=== PATIENT | male | born 1965 | race Caucasian/White ===

== ENCOUNTER 2017-02-03 05:34 | Emergency (ER) | payer OTHER ==
[2017-02-03] MEDS ORDERED: MORPHINE SULFATE 10 MG/ML INJ IV PRN (05:57)
[2017-02-03] MEDS ORDERED: KETOROLAC TROMETHAMINE INJ/PF 30 MG/1 ML SDV IV ONE (05:57)
[2017-02-03] MEDS ORDERED: ONDANSETRON HCL INJ/PF 4 MG/2 ML SDV IV ONE ×2 (05:57→07:47)
[2017-02-03 06:26] LABS: ABSOLUTE BASOPHILS # (AUTO) 0.1 10^3/uL (0.0-0.2); ABSOLUTE EOSINOPHILS # (AUTO) 0.3 10^3/uL (0.0-0.6); ABSOLUTE LYMPHOCYTES (AUTO) 2.5 10^3/uL (0.5-4.7); ABSOLUTE MONOCYTES (AUTO) 0.8 10^3/uL (0.1-1.4); ABSOLUTE NEUT (AUTO) 4.2 10^3/uL (1.7-8.2); BASOPHILS % (AUTO) 0.7 % (0-2); EOSINOPHILS % (AUTO) 3.3 % (0-6); HEMATOCRIT 45.5 % (37.9-51.0); HEMOGLOBIN 15.1 g/dL (13.5-17.0); HGB HCT DIFFERENCE -0.2; LYMPHOCYTES % (AUTO) 31.5 % (13-45); MEAN CORPUSCULAR HEMOGLOBIN 29.6 pg (27.0-33.4); MEAN CORPUSCULAR HGB CONC 33.2 g/dL (32.0-36.0); MEAN CORPUSCULAR VOLUME 89 fl (80-97); MONOCYTES % (AUTO) 10.2 % (3-13); RED BLOOD COUNT 5.11 10^6/uL (4.35-5.55); RED CELL DISTRIBUTION WIDTH 13.6 % (11.5-14.0); SEGMENTED NEUTROPHILS % (AUTO) 54.3 % (42-78); WHITE BLOOD COUNT 7.8 10^3/uL (4.0-10.5)
[2017-02-03 06:39] LABS: ALANINE AMINOTRANSFERASE 40 U/L (21-72); ALBUMIN 4.4 g/dL (3.5-5.0); ALKALINE PHOSPHATASE 89 U/L (38-126); ANION GAP 10 (5-19); ASPARTATE AMINO TRANSFERASE 30 U/L (17-59); BILIRUBIN,DIRECT 0.4 mg/dL (0.0-0.4); BILIRUBIN,TOTAL 0.8 mg/dL (0.2-1.3); BLOOD UREA NITROGEN 17 mg/dL (7-20); CALCIUM 9.9 mg/dL (8.4-10.2); CARBON DIOXIDE 23 mmol/L (22-30); CHLORIDE 109 mmol/L (98-107); CREATININE RESULT 1.02 mg/dL (0.52-1.25); GLUCOSE 140 mg/dL (75-110); LIPASE 122.9 U/L (23-300); POTASSIUM 4.6 mmol/L (3.6-5.0); TOTAL PROTEIN 7.7 g/dL (6.3-8.2)
--- NOTE | 2017-02-03 06:47 | ER Document Report ---
ED GI/ - General Mode of Arrival: Ambulatory Information source: Patient TRAVEL OUTSIDE OF THE [place] IN LAST 30 DAYS: No - HPI Patient complains to provider of: Flank pain - left, Testicular pain - left testicle tingling Onset: This morning - 0400 Location: Left flank, Left testicle Associated symptoms: Other - see notes above <ARVIN BARROW - Last Filed: 02/03/17 06:56> <KERRI GRIDER - Last Filed: 02/03/17 11:56> - General Chief Complaint: Possible Kidney Stone Stated Complaint: LEFT FLANK PAIN Time Seen by Provider: 02/03/17 06:42 Notes: 51 year old male with history of kidney stones (last 1-2 years ago) presents to the ED complaining of left flank pain that started at 0400 this morning. Patient also reports tingling that radiated down to his left testicle, but has since resolved. Patient states that he is feeling much better now (3/10 pain). Patient is not on any regular medication. (ARVIN BARROW) - Related Data Allergies/Adverse Reactions: sulfamethoxazole [From Septra] Allergy (Verified 10/07/13 13:57) trimethoprim [From Septra] Allergy (Verified 10/07/13 13:57) Past Medical History - General Information source: Patient - Social History Smoking Status: Never Smoker Frequency of alcohol use: Rare Family History: Reviewed & Not Pertinent Patient has suicidal ideation: No Patient has homicidal ideation: No - Medical History Medical History: Negative Renal/ Medical History: Denies: Hx Peritoneal Dialysis Surgical Hx: Negative - Immunizations Hx Diphtheria, Pertussis, Tetanus Vaccination: Yes <ARVIN BARROW - Last Filed: 02/03/17 06:56> Review of Systems - Review of Systems Constitutional: No symptoms reported EENT: No symptoms reported Cardiovascular: No symptoms reported Respiratory: No symptoms reported Gastrointestinal: No symptoms reported Genitourinary: See HPI, Flank pain - left Male Genitourinary: See HPI, Other - left testicle tingling Musculoskeletal: No symptoms reported Skin: No symptoms reported Hematologic/Lymphatic: No symptoms reported Neurological/Psychological: No symptoms reported -: Yes All other systems reviewed and negative <ARVIN BARROW - Last Filed: 02/03/17 06:56> Physical Exam - General General appearance: Alert In distress: None - HEENT Head: Normocephalic, Atraumatic Eyes: Normal Extraocular movements intact: Yes Pupils: PERRL - Respiratory Respiratory status: No respiratory distress - Cardiovascular Rhythm: Regular - Abdominal Inspection: Normal Distension: No distension Tenderness: Tender - Patient is tender when palpated to the left rib toward the kidney. - Back Back: CVA tenderness - left. No: Normal - Extremities General upper extremity: Normal inspection, Normal ROM General lower extremity: Normal inspection, Normal ROM - Neurological Neuro grossly intact: Yes - Psychological Associated symptoms: Normal affect, Normal mood - Skin Skin Temperature: Warm Skin Moisture: Dry Skin Color: Normal <ARVIN BARROW - Last Filed: 02/03/17 06:56> Course - Laboratory Result Diagrams: 02/03/17 06:11 02/03/17 06:11 <ARVIN BARROW - Last Filed: 02/03/17 06:56> - Laboratory Result Diagrams: 02/03/17 06:11 02/03/17 06:11 - Diagnostic Test Radiology reviewed: Image reviewed, Reports reviewed - There is a 3 mm calcification in the bladder suggesting a recently passed kidney stone. <KERRI GRIDER - Last Filed: 02/03/17 11:56> - Re-evaluation Re-evalutation: 02/03/17 07:48 The pt is having more pain and nausea. (KERRI GRIDER) - Vital Signs Vital signs: Temp Pulse Resp BP Pulse Ox 97.6 F 80 22 H 127/96 H 97 02/03/17 05:40 02/03/17 05:40 02/03/17 05:40 02/03/17 09:15 02/03/17 05:40 02/03/17 07:47 (KERRI GRIDER) - Laboratory Laboratory results interpreted by me: 02/03/17 02/03/17 06:11 06:36 Chloride 109 H Glucose 140 H Urine Blood SMALL H Discharge <ARVIN BARROW - Last Filed: 02/03/17 06:56> <KERRI GRIDER - Last Filed: 02/03/17 11:56> - Discharge Clinical Impression: Kidney stone on left side Condition: Stable Disposition: HOME, SELF-CARE Additional Instructions: Kidney Stone You have passed a kidney stone. These stones are usually due to increased calcium or uric acid concentrations in your urine. Stones within the kidney itself are not painful. The pain occurs as the stone leaves the kidney to pass down the long tube, called the ureter, leading to the bladder. If the stone is small, it will usually pass by itself. Most patients can pass the stone at home. You will usually receive medications for pain, nausea or vomiting, and sometimes a medication to assist in passing the kidney stone. However, if the pain is very severe or if vomiting prevents you from taking oral pain medications, you may need to return for further treatment. Drink three or four quarts of fluids per day. You will be given pain medication (if needed) and urine strainers. Strain all your urine to see if the stone passes. If your doctor has asked you to bring the stone in for analysis, return with the stone once it has passed. Return if pain or vomiting become severe, if you develop a high fever, if you are unable to pass your urine, or if other unusual symptoms occur. Drink plenty of fluids today. Take Tylenol and Aleve for pain if needed. Return to the emergency room if any new or worsening symptoms. Scribe Attestation: 02/03/17 11:56 I personally performed the services described in the documentation, reviewed and edited the documentation which was dictated to the scribe in my presence, and it accurately records my words and actions. (KERRI GRIDER) Scribe Documentation - Scribe Written by Navi:: Navi Chu, 02/03/2017 0702 acting as scribe for :: Benitez <ARVIN BARROW - Last Filed: 02/03/17 06:56>
[2017-02-03 06:50] LABS: APPEARANCE,URINE CLEAR; BILIRUBIN,URINE NEGATIVE (NEGATIVE); GLUCOSE, URINE NEGATIVE (NEGATIVE); KETONES,URINE NEGATIVE (NEGATIVE); LEUKOCYTE ESTERASE,URINE NEGATIVE (NEGATIVE); NITRITE,URINE NEGATIVE (NEGATIVE); PROTEIN,URINE NEGATIVE (NEGATIVE); URINE SPECIFIC GRAVITY 1.029; UROBILINOGEN,URINE NEGATIVE mg/dL (<2.0)
[2017-02-03] MEDS ORDERED: MORPHINE SULFATE 10 MG/ML INJ IV ONE (07:47)
[2017-02-03] MEDS ORDERED: DIPHENHYDRAMINE HCL 50 MG/ML VIAL IV ONE (09:20)
[2017-02-03] MEDS ORDERED: METOCLOPRAMIDE HCL INJ/PF 10 MG/2 ML SDV IV ONE (09:20)
[2017-02-03 12:46] VITALS: BP 125/73
== END 2017-02-03 12:13 | disposition home or self-care (01) ==
LOC: ER 05:34
DX: N20.0 Calculus of kidney (principal); N50.812 Left testicular pain; R10.9 Unspecified abdominal pain; Z88.3 Allergy status to other anti-infective agents
CPT/HCPCS: 96376; 99284; 96374; 96375; 36415; 83690; 85025; 80053; 81001; 76380; J1200; J1885; J2765; J2270; J2405

== ENCOUNTER 2017-08-09 02:29 | Emergency (ER) | payer OTHER ==
[2017-08-09] MEDS ORDERED: KETOROLAC TROMETHAMINE INJ/PF 30 MG/1 ML SDV IV ONE (02:59)
[2017-08-09] MEDS ORDERED: NORMAL SALINE 1000 ML 1,000 ML IV ONE (03:00)
--- NOTE | 2017-08-09 03:02 | ER Document Report ---
ED General - General Chief Complaint: Flank Pain Stated Complaint: FLANK PAIN Time Seen by Provider: 08/09/17 02:56 Notes: Patient is a pleasant 51-year-old male who presents with complaint of left flank pain. Patient has history of kidney stone back in January. He was able to pass this on his own. He says it feels exactly the same. No fevers. Some nausea. No vomiting. No diarrhea. No hematuria. No dysuria. Only medical allergies to Septra. No other complaints at this time. TRAVEL OUTSIDE OF THE [place] IN LAST 30 DAYS: No - Related Data Allergies/Adverse Reactions: sulfamethoxazole [From Septra] Allergy (Verified 10/07/13 13:57) trimethoprim [From Septra] Allergy (Verified 10/07/13 13:57) Past Medical History - Social History Smoking Status: Never Smoker Frequency of alcohol use: None Drug Abuse: None Family History: Reviewed & Not Pertinent Renal/ Medical History: Denies: Hx Peritoneal Dialysis - Immunizations Hx Diphtheria, Pertussis, Tetanus Vaccination: Yes Review of Systems - Review of Systems Notes: My Normal Review Basic REVIEW OF SYSTEMS: CONSTITUTIONAL : Denies fever, chills, or sweats. Denies recent illness. CARDIOVASCULAR: Denies chest pain. RESPIRATORY: Denies cough, cold, or chest congestion. Denies shortness of breath, difficulty breathing, or wheezing. GASTROINTESTINAL: Left flank pain. No vomiting. GENITOURINARY: Denies difficulty urinating, painful urination, burning, frequency, or blood in urine. MUSCULOSKELETAL: Denies neck or back pain or joint pain or swelling. SKIN: Denies rash or skin lesions. ALL OTHER SYSTEMS REVIEWED AND NEGATIVE. Physical Exam - Vital signs Vitals: Temp Pulse Resp BP Pulse Ox 97.5 F 82 16 162/95 H 98 08/09/17 02:37 08/09/17 02:37 08/09/17 02:37 08/09/17 02:37 08/09/17 02:37 - Notes Notes: General Appearance: Well nourished, alert, cooperative, no acute distress, moderate obvious discomfort. Vitals: reviewed, See vital signs table. Head: no swelling or tenderness to the head Eyes: PERRL, EOMI, Conjuctiva clear Mouth: No decreasd moisture Lungs: No wheezing, No rales, No rhonci, No accessory muscle use, good air exchange bilaterally. Heart: Normal rate, Regular rythm, No murmur, no rub Abdomen: Normal BS, soft, No rigidity, No useful abdominal tenderness to palpation., No guarding, no rebound, Extremities: strength 5/5 in all extremities, good pulses in all extremities, no swelling or tenderness in the extremities, no edema. Skin: warm, dry, appropriate color, no rash Neuro: speech clear, oriented x 3, normal affect, responds appropriately to questions. Course - Re-evaluation Re-evalutation: 08/09/17 04:59 Patient's pain did not respond to Toradol. Is improved some after Dilaudid. He looks and feels improved. He says he still has some pain there but nowhere near as intense as it was before. His clinical presentation was very much like a kidney stone; however, he has no blood in his urine his ultrasound shows no hydronephrosis. We will go forward with CT scan to further delineate exactly what is going on. 08/09/17 06:04 Patient's pain is gone but is now nauseous. He did start vomiting was talking to him. He had Zofran. I will order him some Reglan. CT scan does show a 3 mm stone in the left mid ureter. 08/09/17 06:50 Since nausea was much improved and he feels well. Patient will be discharged home. I encouraged him to take the Toradol first for pain. If he still has pain and he can progress to Percocet. I have also prescribe nausea medicine. Encouraged him return to ER immediately if he has trouble vomiting, worsening pain, fevers, or feels unwell. Patient agrees with plan will be discharged home. Dictation of this chart was performed using voice recognition software; therefore, there may be some unintended grammatical errors. - Vital Signs Vital signs: Temp Pulse Resp BP Pulse Ox 97.5 F 82 16 162/95 H 98 08/09/17 02:37 08/09/17 02:37 08/09/17 02:37 08/09/17 02:37 08/09/17 02:37 - Laboratory Result Diagrams: 08/09/17 03:15 08/09/17 04:10 Laboratory results interpreted by me: 08/09/17 04:10 Potassium 5.1 H Glucose 114 H Discharge - Discharge Clinical Impression: Kidney stone on left side Additional Instructions: KIDNEY STONE: You are passing or have passed a kidney stone. These stones are usually due to increased calcium or uric acid concentrations in your urine. Stones within the kidney itself are not painful. The pain occurs as the stone leaves the kidney to pass down the long tube, called the ureter, leading to the bladder. If the stone is small, it will usually pass by itself. Most patients can pass the stone at home. You will usually receive medications for pain, nausea or vomiting, and sometimes a medication to assist in passing the kidney stone. However, if the pain is very severe or if vomiting prevents you from taking oral pain medications, you may need to return for further treatment. Drink three or four quarts of fluids per day. You will be given pain medication (if needed) and urine strainers. Strain all your urine to see if the stone passes. If your doctor has asked you to bring the stone in for analysis, return with the stone once it has passed. Return if pain or vomiting become severe, if you develop a high fever, if you are unable to pass your urine, or if other unusual symptoms occur. TORADOL INJECTION: You have been given an injection of ketorolac tromethamine (Toradol). This is an excellent, safe drug for pain control. It also has potent antiinflammatory action. You should have significant pain relief within about one hour. Toradol is not addicting and is non-sedating. It does not interfere with driving or work. Call or return if you develop itching, hives, shortness of breath, or rash. PAIN MEDICATION INJECTION: You have received an injection of a pain medication. You should experience significant pain relief within 45 minutes. This drug is a narcotic - - it will impair your judgement, slow your reaction time and make you sleepy ( as well as relieve your pain). Narcotics also can cause nausea. You should not drive, work with machinery, or perform any task requiring mental alertness until all effects of the medication are gone -- six to eight hours. Do not take any alcohol, or sedatives, and do not take any other medication without checking with your physician. ANTINAUSEA MEDICATION: You have been given a medication to suppress nausea and vomiting. This type of medication can be given as a shot, pill, or suppository. It will usually last for many hours. Pills and shots usually last six to eight hours, suppositories last about 12 hours. For the typical illness, only one or two doses of the medication may be necessary. Mild lightheadedness may occur. This type of medicine can cause drowsiness. Do not drive or operate dangerous machinery while under its influence. Do not mix with alcohol. See your doctor at once if you have muscle spasms or tightness, or uncontrollable motions (particularly of the neck, mouth, or jaw). Persistent vomiting or severe lightheadedness should also be evaluated by the physician. ORAL NARCOTIC MEDICATION: You have been given a prescription for pain control. This medication is a narcotic. It's best taken with food, as nausea can result if taken on an empty stomach. Don't operate machinery or drive within six hours of taking this medication. Do not combine this medicine with alcohol, or with any medication which can cause sedation (such as cold tablets or sleeping pills) unless you get permission from the physician. Narcotics tend to cause constipation. If possible, drink plenty of fluids and eat a diet high in fiber and fruits. Please be aware that prescription narcotics also have the potential for abuse. People become addicted to these medications because of the general sense of wellbeing that they induce. This feeling along with a significant reduction in tension, anxiety, and aggression provides a stimulating seductive quality to these drugs. Once your pain is under control, we encourage you to discard your unused narcotics. FLOMAX (tamsulosin): Flomax is a medicine that shrinks the prostate gland. It helps relieve symptoms of benign prostatic hypertrophy, such as frequent urination, weak stream, and inadequate emptying. It has been shown to dilate the ureter (tube leading from the kidney to the bladder) and help in passing kidney stones Flomax usually causes no side effects. You may notice slight tiredness and dizziness for a few days. Some patients develop nasal congestion. Rarely, impotence can occur. If the symptoms are bothersome and don't improve with continued use, call your doctor. Contact your doctor or return if you have fainting spells, severe weakness or dizziness, shortness of breath, or rash. FOLLOW-UP CARE: If you have been referred to a physician for follow-up care, call the physician s office for an appointment as you were instructed or within the next two days. If you experience worsening or a significant change in your symptoms, notify the physician immediately or return to the Emergency Department at any time for re-evaluation. PLease follow up with a urologist if you have not passed your stone after 3 days. If unable to follow up with the urologist and still having pain after 4 days, please return to the ER for reevaluation Return tot ER immediately if you have intractable vomiting, fevers, or intractable pain. Prescriptions: Ketorolac Tromethamine [Toradol 10 mg Tablet] 10 mg PO Q8HP PRN #15 tablet PRN Reason: Ondansetron [Zofran Odt 4 mg Tablet] 1 tab PO Q4H PRN #15 tab.rapdis PRN Reason: For Nausea/Vomiting Oxycodone HCl/Acetaminophen [Percocet 5-325 mg Tablet] 1 tab PO Q4H PRN #15 tablet PRN Reason: Tamsulosin HCl [Flomax 0.4 mg Cap.sr] 0.4 mg PO DAILY #7 cap.sr.24h Forms: Return to Work Referrals: JONAS GRECO MD [NO LOCAL MD] - Follow up in 3-5 days
[2017-08-09 03:28] LABS: ABSOLUTE EOSINOPHILS # (AUTO) 0.2 10^3/uL (0.0-0.6); ABSOLUTE LYMPHOCYTES (AUTO) 2.1 10^3/uL (0.5-4.7); ABSOLUTE MONOCYTES (AUTO) 0.6 10^3/uL (0.1-1.4); BASOPHILS % (AUTO) 0.7 % (0-2); EOSINOPHILS % (AUTO) 2.2 % (0-6); HEMATOCRIT 42.4 % (37.9-51.0); HEMOGLOBIN 14.6 g/dL (13.5-17.0); HGB HCT DIFFERENCE 1.4; LYMPHOCYTES % (AUTO) 30.3 % (13-45); MEAN CORPUSCULAR HEMOGLOBIN 30.1 pg (27.0-33.4); MEAN CORPUSCULAR HGB CONC 34.5 g/dL (32.0-36.0); MEAN CORPUSCULAR VOLUME 87 fl (80-97); MONOCYTES % (AUTO) 9.3 % (3-13); RED BLOOD COUNT 4.85 10^6/uL (4.35-5.55); RED CELL DISTRIBUTION WIDTH 13.2 % (11.5-14.0); SEGMENTED NEUTROPHILS % (AUTO) 57.5 % (42-78); WHITE BLOOD COUNT 6.9 10^3/uL (4.0-10.5)
[2017-08-09] MEDS ORDERED: ONDANSETRON HCL INJ/PF 4 MG/2 ML SDV IV ONE (04:44)
[2017-08-09] MEDS ORDERED: HYDROMORPHONE HCL INJ/PF 2 MG/ML AMPULE IV ONE (04:44)
[2017-08-09 04:49] LABS: APPEARANCE,URINE CLEAR; BILIRUBIN,URINE NEGATIVE (NEGATIVE); GLUCOSE, URINE NEGATIVE (NEGATIVE); KETONES,URINE NEGATIVE (NEGATIVE); LEUKOCYTE ESTERASE,URINE NEGATIVE (NEGATIVE); NITRITE,URINE NEGATIVE (NEGATIVE); PROTEIN,URINE NEGATIVE (NEGATIVE); URINE SPECIFIC GRAVITY 1.026; UROBILINOGEN,URINE NEGATIVE mg/dL (<2.0)
--- NOTE | 2017-08-09 04:55 | RADIOLOGY REPORT (SQ) ---
EXAM DESCRIPTION: U/S RETROPERITON (RENAL/AORTA) COMPLETED DATE/TIME: 08/09/2017 4:17 am REASON FOR STUDY: left flank pain, Hx of kidney stone COMPARISON: None. TECHNIQUE: Dynamic and static grayscale images acquired of the kidneys and bladder and recorded on P ACS. Additional selected color Doppler and spectral images recorded. LIMITATIONS: None. FINDINGS: RIGHT KIDNEY: Normal size, 10.3 cm. Normal echogenicity. No solid or suspicious masses. No hydronephrosis. No calcifications. LEFT KIDNEY: Normal size, 12.4 cm. Normal echogenicity. No solid or suspicious masses. No hydronephr osis. Nonspecific bifid left collecting system. Echogenic foci consistent with known small, less th an 3 mm each, left nephrolithiasis demonstrated on prior CT, 02/03/2017. BLADDER: No masses. Right ureteral jet flow demonstrated. OTHER FINDINGS: No other significant finding. IMPRESSION: Punctate left nephrolithiasis. Otherwise, unremarkable. TECHNICAL DOCUMENTATION: JOB ID: [id number] [employer]- All Rights Reserved
--- NOTE | 2017-08-09 05:53 | RADIOLOGY REPORT (SQ) ---
EXAM DESCRIPTION: CT LTD RENAL STONE PROTOCOL ON COMPLETED DATE/TIME: 08/09/2017 5:28 am REASON FOR STUDY: left flank pain COMPARISON: 02/03/2017. TECHNIQUE: CT scan of the abdomen and pelvis performed without intravenous or oral contrast. Images reviewed with lung, soft tissue, and bone windows. Reconstructed coronal and sagittal MPR images revi ewed. All images stored on PACS. All CT scanners at this facility use dose modulation, iterative reconstruction, and/or weight based d osing when appropriate to reduce radiation dose to as low as reasonably achievable (ALARA). [facility]: Dose Right [facility]: CareDose [facility]: Dose Right [facility]: Teradose 4D [facility]: [employer] RADIATION DOSE: CT Rad equipment meets quality standard of care and radiation dose reduction techniq ues were employed. CTDIvol: 18.2 mGy. DLP: 1027 mGy-cm.mGy. LIMITATIONS: None. FINDINGS: LOWER CHEST: No significant findings. No nodules or infiltrates. NON-CONTRASTED LIVER, SPLEEN, ADRENALS: Evaluation limited by lack of IV contrast. 1.8 cm left adren al adenoma with CT density of -18 Hounsfield units. PANCREAS: No masses. No peripancreatic inflammatory changes. GALLBLADDER: No identified stones by CT criteria. No inflammatory changes to suggest cholecystitis. RIGHT KIDNEY AND URETER: No suspicious masses. Assessment limited by lack of IV contrast. No signif icant calcifications. No hydronephrosis or hydroureter. LEFT KIDNEY AND URETER: 0.3 cm left mid ureteral stone at the L3-L4 disc level with mild left hydrone phrosis and minimal left hydroureter. Additional left nephrolithiasis measures up to 0.4 cm each. M ild perinephric fat stranding. AORTA AND RETROPERITONEUM: No aneurysm. No retroperitoneal masses or adenopathy. BOWEL AND PERITONEAL CAVITY: No obvious masses or inflammatory changes. No free fluid. APPENDIX: Normal. PELVIS, BLADDER, AND ABDOMINAL WALL:No abnormal masses. No free fluid. Bladder normal. BONES: No significant findings. Mild bilateral sacroiliac osteoarthritis. Mild lower lumbar spondyl osis. OTHER: No other significant finding. IMPRESSION: 0.3 cm left mid ureteral stone with low-grade obstruction. Additional small left nephro lithiasis. COMMENT: Quality ID # [id number]: Final reports with documentation of one or more dose reduction techniques (e.g., Automated exposure control, adjustment of the mA and/or kV according to patient size, use of iterative reconstruction technique) TECHNICAL DOCUMENTATION: JOB ID: [id number] [email or web address]- All Rights Reserved
[2017-08-09] MEDS ORDERED: METOCLOPRAMIDE HCL INJ/PF 10 MG/2 ML SDV IV ONE (06:04)
[2017-08-09 06:41] LABS: ANION GAP 12 (5-19); BLOOD UREA NITROGEN 19 mg/dL (7-20); CALCIUM 9.9 mg/dL (8.4-10.2); CARBON DIOXIDE 26 mmol/L (22-30); CHLORIDE 104 mmol/L (98-107); CREATININE RESULT 1.03 mg/dL (0.52-1.25); GLUCOSE 114 mg/dL (75-110); POTASSIUM 5.1 mmol/L (3.6-5.0); SODIUM 141.8 mmol/L (137-145)
[2017-08-09 07:03] VITALS: BP 144/84
== END 2017-08-09 07:03 | disposition home or self-care (01) ==
LOC: ER 02:29
DX: N20.0 Calculus of kidney (principal); R10.9 Unspecified abdominal pain; R11.2 Nausea with vomiting, unspecified
CPT/HCPCS: 99284; 96361; 96374; 96375; 36415; 85025; 80048; 81001; 76770; 76380; J1885; J2765; J1170; J2405; J7030

== ENCOUNTER 2017-08-12 21:20 | Emergency (ER) | payer OTHER ==
[2017-08-12] MEDS ORDERED: FENTANYL CITRATE INJ/PF 100 MCG/2 ML AMPUL IV PRN (21:31)
[2017-08-12] MEDS ORDERED: KETOROLAC TROMETHAMINE INJ/PF 30 MG/1 ML SDV IV ONE (21:31)
--- NOTE | 2017-08-12 21:33 | ER Document Report ---
ED General - General Stated Complaint: FLANK PAIN Time Seen by Provider: 08/12/17 21:25 Notes: 51-year-old male presents by EMS for chief complaint of left flank pain. Patient states that he has a history of kidney stones. Was seen here a few days ago for the same. Diagnosed with a 3.5 mm kidney stone on the left mid ureter. Continues to have pain. Has been taking all of his medications but today it got worse. Was unable to keep his medications down. Currently on Percocet and Flomax. Has had numerous kidney stones in the past. Denies any fevers or chills. TRAVEL OUTSIDE OF THE [place] IN LAST 30 DAYS: No - HPI Onset: Other - A few days ago Quality of pain: Sharp Severity: Severe Pain Level: 5 Associated symptoms: Nausea, Vomiting Exacerbated by: Denies Relieved by: Denies Similar symptoms previously: Yes Recently seen / treated by doctor: Yes - Related Data Allergies/Adverse Reactions: sulfamethoxazole [From ] Allergy (Verified 10/07/13 13:57) trimethoprim [From Mayra] Allergy (Verified 10/07/13 13:57) Past Medical History - General Information source: Patient - Social History Smoking Status: Never Smoker Frequency of alcohol use: None Drug Abuse: None Lives with: Family Family History: Reviewed & Not Pertinent Renal/ Medical History: Reports: Hx Kidney Stones. Denies: Hx Peritoneal Dialysis - Immunizations Hx Diphtheria, Pertussis, Tetanus Vaccination: Yes Review of Systems - Review of Systems Constitutional: No symptoms reported EENT: No symptoms reported Cardiovascular: No symptoms reported Respiratory: No symptoms reported Gastrointestinal: Nausea, Vomiting Genitourinary: No symptoms reported Male Genitourinary: No symptoms reported Musculoskeletal: No symptoms reported Skin: No symptoms reported Hematologic/Lymphatic: No symptoms reported Neurological/Psychological: No symptoms reported Physical Exam - Vital signs Interpretation: Normal - General General appearance: Alert, Other - There is uncomfortable In distress: None - HEENT Head: Normocephalic, Atraumatic Eyes: Normal Pupils: PERRL - Respiratory Respiratory status: No respiratory distress Chest status: Nontender Breath sounds: Normal Chest palpation: Normal - Cardiovascular Rhythm: Regular Heart sounds: Normal auscultation Murmur: No - Abdominal Inspection: Normal Distension: No distension Bowel sounds: Normal Tenderness: Nontender Organomegaly: No organomegaly - Back Back: Normal, Nontender - Extremities General upper extremity: Normal inspection, Nontender, Normal color, Normal ROM , Normal temperature General lower extremity: Normal inspection, Nontender, Normal color, Normal ROM , Normal temperature, Normal weight bearing. No: Clara's sign - Neurological Neuro grossly intact: Yes Cognition: Normal Orientation: AAOx4 Janna Coma Scale Eye Opening: Spontaneous Janna Coma Scale Verbal: Oriented [place] Coma Scale Motor: Obeys Commands [place] Coma Scale Total: 15 Speech: Normal Motor strength normal: LUE, RUE, LLE, RLE Sensory: Normal - Psychological Associated symptoms: Normal affect, Normal mood - Skin Skin Temperature: Warm Skin Moisture: Dry Skin Color: Normal Course - Re-evaluation Re-evalutation: 08/12/17 21:59 Based on recent workup with a 3.5 mm stone this should pass. Will give pain medication fluids nausea meds and reassess. Check urinalysis at this time. 08/12/17 23:11 Laboratory 08/12/17 21:27 Urine Color STRAW Urine Appearance CLEAR Urine pH 6.0 Ur Specific Fith[place] 1.003 Urine Protein NEGATIVE Urine Glucose (UA) NEGATIVE Urine Ketones TRACE H Urine Blood NEGATIVE Urine Nitrite NEGATIVE Urine Bilirubin NEGATIVE Urine Urobilinogen NEGATIVE Ur Leukocyte Esterase NEGATIVE Urine WBC (Auto) 1 Urine RBC (Auto) 0 Urine Ascorbic Acid NEGATIVE Patient is feeling better. Should be able to pass the stone. Recommended that he continue to use anti-inflammatory medications. Will give him some more narcotic pain medication. We will also prescribe him some Pyridium. Recommend he follow-up with a urologist as soon as possible. - Laboratory Laboratory results interpreted by me: 08/12/17 21:27 Urine Ketones TRACE H - EKG Interpretation by Me EKG shows normal: [place] Discharge - Discharge Clinical Impression: Ureterolithiasis Disposition: HOME, SELF-CARE Instructions: Kidney Stone ([facility]) Prescriptions: Ibuprofen [Motrin 800 mg Tablet] 800 mg PO Q8H PRN #30 tab PRN Reason: Oxycodone HCl/Acetaminophen [Percocet 5-325 mg Tablet] 1 - 2 tab PO Q4H PRN #15 tablet PRN Reason: Phenazopyridine HCl [Pyridium 200 mg Tablet] 200 mg PO TID #15 tablet
[2017-08-12 21:53] LABS: APPEARANCE,URINE CLEAR; BILIRUBIN,URINE NEGATIVE (NEGATIVE); GLUCOSE, URINE NEGATIVE (NEGATIVE); KETONES,URINE TRACE mg/dL (NEGATIVE); LEUKOCYTE ESTERASE,URINE NEGATIVE (NEGATIVE); NITRITE,URINE NEGATIVE (NEGATIVE); PROTEIN,URINE NEGATIVE (NEGATIVE); URINE SPECIFIC GRAVITY 1.003; UROBILINOGEN,URINE NEGATIVE mg/dL (<2.0)
[2017-08-12] MEDS ORDERED: FENTANYL CITRATE INJ/PF 100 MCG/2 ML AMPUL IV ONE (23:10)
[2017-08-12] MEDS ORDERED: PHENAZOPYRIDINE HCL 100 MG TABLET PO ONE (23:10)
[2017-08-12 23:41] VITALS: BP 149/82
== END 2017-08-12 23:42 | disposition home or self-care (01) ==
LOC: ER 21:20
DX: N20.1 Calculus of ureter (principal); R10.9 Unspecified abdominal pain; R11.2 Nausea with vomiting, unspecified; Z87.442 Personal history of urinary calculi
CPT/HCPCS: 96376; 99284; 96374; 96375; 81001; J3010; J1885; J3490

== ENCOUNTER 2019-01-18 03:17 | Emergency (ER) | payer OTHER ==
--- NOTE | 2019-01-18 03:58 | ER Document Report ---
ED General - General Chief Complaint: Shortness Of Breath Stated Complaint: SHORTNESS OF BREATH Time Seen by Provider: 01/18/19 03:50 TRAVEL OUTSIDE OF THE [place] IN LAST 30 DAYS: No - HPI Notes: Patient is a 53-year-old male who presents to the emergency department for evaluation of difficulty breathing. He states that yesterday he developed a cough. Is been productive of yellow and green sputum. He denies any fevers or chills. No nausea or vomiting. No pain of any sort. Tonight he went to sleep, he woke up and was feeling short of breath. He states that he felt as if he could not really take a good breath. He denies any history of asthma or COPD. No history of heart disease. - Related Data Allergies/Adverse Reactions: sulfamethoxazole [From ] Allergy (Verified 10/07/13 13:57) trimethoprim [From ] Allergy (Verified 10/07/13 13:57) Past Medical History - General Information source: Patient - Social History Smoking Status: Never Smoker Family History: Reviewed & Not Pertinent Renal/ Medical History: Reports: Hx Kidney Stones. Denies: Hx Peritoneal Dialysis - Immunizations Hx Diphtheria, Pertussis, Tetanus Vaccination: Yes Review of Systems - Review of Systems Constitutional: No symptoms reported EENT: No symptoms reported Cardiovascular: See HPI Respiratory: See HPI Gastrointestinal: No symptoms reported Genitourinary: No symptoms reported Musculoskeletal: No symptoms reported Skin: No symptoms reported Neurological/Psychological: No symptoms reported Physical Exam - Vital signs Vitals: Temp Pulse Resp BP Pulse Ox 98.1 F 82 18 147/88 H 97 01/18/19 03:35 01/18/19 03:35 01/18/19 03:35 01/18/19 03:35 01/18/19 03:35 - Notes Notes: Vital signs reviewed, please refer to chart. Patient is normocephalic, atraumatic. Pupils equal round, reactive to light. Neck is supple without meningismus. Heart is regular rate and rhythm. Lungs reveal harsh breath sounds but no wheezes, rales, rhonchi. Abdomen is soft, nontender, normoactive bowel sounds throughout. Extremities without cyanosis, clubbing. 1+ pitting pretibial edema without posterior calf tenderness. Peripheral pulses are equal. Skin is warm and dry. Patient is awake, alert, neurological exam is nonfocal. Course - Re-evaluation Re-evalutation: 01/18/19 03:57 Patient presents emergency department for evaluation of difficulty breathing. His symptoms seem most consistent with URI/bronchitis, because he woke up in the middle the night feeling short of breath, because he has edema that he had been unaware of, will evaluate him further with cardiac evaluation. Patient was placed on a monitoring engineer, will continue to monitor. 01/18/19 05:02 Laboratory investigations, imaging, EKG are unremarkable. I do strongly suspect that the patient is just the beginning of a viral illness. He is given some albuterol here. We will also send him home with some Tessalon Perles. He is to rest, follow-up with primary care. He is return to the emergency department with worsening or new concerning symptoms. - Vital Signs Vital signs: Temp Pulse Resp BP Pulse Ox 98.1 F 82 14 137/97 H 95 01/18/19 03:35 01/18/19 03:35 01/18/19 05:00 01/18/19 04:01 01/18/19 05:00 - Laboratory Result Diagrams: 01/18/19 04:00 01/18/19 04:00 Laboratory results interpreted by me: 01/18/19 04:00 WBC 11.2 H Absolute Neutrophils 8.5 H - Diagnostic Test Radiology reviewed: Reports reviewed Radiology results interpreted by me: 01/18/19 05:02 Chest X-Ray 01/18/19 03:55 IMPRESSION: Clear lungs. - EKG Interpretation by Me Additional EKG results interpreted by me: 01/18/19 05:03 Sinus mechanism with rate of 74 bpm. Normal axis and intervals, no acute ST changes concerning for ischemia or infarction. Discharge - Discharge Clinical Impression: Lower extremity edema Dyspnea Qualifiers: Dyspnea type: unspecified Qualified Code(s): R06.00 - Dyspnea, unspecified Upper respiratory infection Qualifiers: URI type: unspecified viral URI Qualified Code(s): J06.9 - Acute upper respiratory infection, unspecified Condition: Stable Disposition: HOME, SELF-CARE Instructions: Upper Respiratory Illness ([facility]), Dyspnea, Nonspecific ([facility]) Additional Instructions: Rest, take medications as prescribed. Stay well-hydrated. Follow-up with your doctor next week. Return to the emergency department with worsening or new concerning symptoms.
[2019-01-18 04:21] LABS: ABSOLUTE EOSINOPHILS # (AUTO) 0.2 10^3/uL (0.0-0.6); ABSOLUTE LYMPHOCYTES (AUTO) 1.5 10^3/uL (0.5-4.7); ABSOLUTE NEUT (AUTO) 8.5 10^3/uL (1.7-8.2); BASOPHILS % (AUTO) 0.4 % (0-2); EOSINOPHILS % (AUTO) 1.9 % (0-6); HEMATOCRIT 45.3 % (37.9-51.0); HEMOGLOBIN 15.3 g/dL (13.5-17.0); MEAN CORPUSCULAR HEMOGLOBIN 29.8 pg (27.0-33.4); MEAN CORPUSCULAR HGB CONC 33.8 g/dL (32.0-36.0); MEAN CORPUSCULAR VOLUME 88 fl (80-97); MONOCYTES % (AUTO) 9.2 % (3-13); PLATELET COUNT 294 10^3/uL (150-450); RED BLOOD COUNT 5.13 10^6/uL (4.35-5.55); RED CELL DISTRIBUTION WIDTH 13.2 % (11.5-14.0); SEGMENTED NEUTROPHILS % (AUTO) 75.5 % (42-78); TOTAL CELLS COUNTED % (AUTO) 100 %; WHITE BLOOD COUNT 11.2 10^3/uL (4.0-10.5)
[2019-01-18 04:37] LABS: ALANINE AMINOTRANSFERASE 29 U/L (21-72); ALBUMIN 4.3 g/dL (3.5-5.0); ALKALINE PHOSPHATASE 102 U/L (38-126); ANION GAP 8 (5-19); ASPARTATE AMINO TRANSFERASE 27 U/L (17-59); BILIRUBIN,DIRECT 0.4 mg/dL (0.0-0.4); BILIRUBIN,TOTAL 0.6 mg/dL (0.2-1.3); BLOOD UREA NITROGEN 19 mg/dL (7-20); CARBON DIOXIDE 26 mmol/L (22-30); CHLORIDE 107 mmol/L (98-107); CREATINE KINASE 82 U/L (55-170); GLUCOSE 110 mg/dL (75-110); TOTAL PROTEIN 7.7 g/dL (6.3-8.2)
--- NOTE | 2019-01-18 04:40 | RADIOLOGY REPORT (SQ) ---
CLINICAL HISTORY: dyspnea COMPARISON: None. TECHNIQUE: XR CHEST 1 VIEW 01/18/2019 3:55 AM CDT FINDINGS: Cardiac silhouette is normal in size. Lungs are clear without consolidation, atelectasis, mass or edema. There is no pleural effusion. There is no pneumothorax. There are no acute osseous findings. IMPRESSION: Clear lungs.
[2019-01-18 04:49] LABS: CREATINE KINASE MB 0.48 ng/mL (<4.55); NT PRO BNP 50 pg/mL (5-900)
[2019-01-18 04:53] LABS: TROPONIN I < 0.012 ng/mL
[2019-01-18] MEDS ORDERED: ALBUTEROL SULFATE HFA (90 MCG/PUFF) 8 GM MDI (1 MDI/ER DISP) IH PRN (05:01)
[2019-01-18 05:18] VITALS: BP 139/94
--- NOTE | 2019-01-18 18:43 | EKG REPORT ---
SEVERITY:- NORMAL ECG - SINUS RHYTHM : Confirmed by: Kimberly Burnett 18-Jan-2019 18:43:10
== END 2019-01-18 05:45 | disposition home or self-care (01) ==
LOC: ER 03:17
DX: R60.9 Edema, unspecified (principal); J06.9 Acute upper respiratory infection, unspecified; R06.02 Shortness of breath; R06.00 Dyspnea, unspecified; Z87.442 Personal history of urinary calculi; Z88.3 Allergy status to other anti-infective agents
CPT/HCPCS: 93005; 99284; 36415; 82553; 82550; 85025; 80053; 84484; 83880; 71045; 93010; J3490